=== PATIENT | male | born 1980 | race Two or more races ===

== ENCOUNTER 2025-01-02 21:39 | Emergency (ER) | payer SELFPAY ==
[2025-01-02 21:41] VITALS: BMI 33.9
[2025-01-02 22:04] VITALS: BP 149/102; PULSE 69; RESP 18; TEMP 37.1; O2SAT 97
--- NOTE | 2025-01-02 22:06 | XR_ITS ---
Examination: CT brain head without contrast. 2-D sagittal coronal reconstructions Date and time of exam: January 02, 2025, 1018 hours INDICATIONS: Headache dizziness high blood pressure today CTDI: vol (mGy): 52.2 DLP: (mGycm): 1110 Technique: Multiple CT axial sections of the brain have been obtained, 5 mm slice thickness. Contrast has not been administered. 2-D sagittal, coronal reconstructions have been obtained Low dose protocols were performed. One or more of the following dose reduction techniques were used; automated exposure control, adjustment of the mA and/or KV according to patient size, use of iterative reconstruction technique. Findings: No significant ventricular enlargement. Intra-axial or extra-axial hemorrhage density is not seen. No mass effect or midline shift Basal cisterns are not remarkable. Fourth ventricle is midline. Cranial vault intact. Impression: Negative for acute hemorrhage, mass effect or midline shift
--- NOTE | 2025-01-02 22:07 | EDNOTE_ITS ---
ED Headache RME/HPI General Chief Complaint: Headache Stated Complaint: HEADACHE Time Seen by Provider: 01/02/25 22:01 Arrival date/time: 01/02/25 21:39 44-year-old male patient was brought in by family for evaluation regarding headache. Patient has been having left-sided headache, has been ongoing for several weeks, getting worse last night severity moderate. Patient is worried because he had skull fracture with intracranial bleed 7 years ago. Denies any recent head trauma. Denies any fever denies any neck pain. Patient is ambulatory. Related Data Previous Rx's ?Medication ?Instructions ?Recorded ibuprofen 800 mg tablet 800 mg PO TID PRN pain #30 t abs 01/02/25 Allergies Allergy/AdvReac Type Severity Reaction Status Date / Time No Known Allergies Allergy Verified 01/02/25 21:40 Review of Systems Review of Systems Narrative Review of Systems: Review of system reviewed and within normal limits except mentioned in HPI ED Exam Narrative Physical exam: VITAL SIGNS: Reviewed. GENERAL APPEARANCE: Alert and interactive, follows commands, no acute distress, HEAD AND FACE: Non-traumatic. ENT: PERRL, pink conjunctivitis, eyelid no trauma, Mucous membrane moist. NECK: Supple, nontender, no nuchal rigidity. CHEST: No tenderness, no crepitus, no paradoxical movement, no retractions. LUNGS: Clear, well ventilated, symmetric, no rales, no wheezing, no ronchi, no stridor, good breath sounds bilaterally. HEART: Regular rate, regular rhythm, no murmur, no gallops. ABDOMEN: Soft, positive bowel sounds, nondistended, no guarding, nontender, no rebound, no masses, RECTAL: Deferred. GENITAL: Deferred. NEUROLOGICAL: Gross motor function intact sensory function intact, Appropriate for age. MUSCULOSKELETAL: low back nontender, full range of motion. EXTREMITIES: Nontender, full range of motion. SKIN: Color pink, dry, no rash, no lacerations, no abrasions, no contusions. LYMPHATICS: Deferred. Course Quality Measures none Orders Category Date Time Status CT head/brain wo con Stat Exams 01/02/25 22:06 Completed DiphenhydrAMINE [Benadryl] Med 01/02/25 22:52 Once 50 mg PO X1 ONE Ketorolac Inj [Toradol Inj] Med 01/02/25 22:52 Once 30 mg IM X1 ONE Metoclopramide [Reglan] Med 01/02/25 22:52 Once 10 mg PO X1 ONE Vital Signs Vital signs: Vital Signs Temperature 98.7 F 01/02/25 22:04 Pulse Rate 69 01/02/25 22:04 Respiratory Rate 18 01/02/25 22:04 Blood Pressure 149/102 H 01/02/25 22:04 Pulse Oximetry (%) 97 01/02/25 22:04 Oxygen Delivery Method Room Air 01/02/25 22:04 Headache MDM Narrative [facility] Narrative:: 44-year-old male patient was brought in by family for evaluation regarding headache. Patient has been having left-sided headache, has been ongoing for several weeks, getting worse last night severity moderate. Patient is worried because he had skull fracture with intracranial bleed 7 years ago. Denies any recent head trauma. Denies any fever denies any neck pain. Patient is ambulatory. CT scan of the head came back unremarkable. Results discussed with the patient. Patient received Toradol IM Benadryl and Reglan with significant improvement of headache. Further imaging is not that at this time patient is ambulatory, and his headache is gone. Stable for discharge home Patient data External records reviewed:: None Clinical information provided by:: patient Social determinants that could affect healthcare access:: none Patient has the following chronic illnesses:: None How is presenting disease/condition affected by chronic disease/condition?: no chronic disease Evaluation data The following diagnostics were reviewed and interpreted by me:: radiology exam(s) Lab and/or radiology exams considered but not ordered:: None Interpretation Summary: See [facility] Medications / Prescriptions Medications or Prescriptions considered but not ordered:: None Medication administrations:: Toradol Reglan Benadryl Consultations Consultation(s) initiated? (list below): No Diagnosis Differential diagnosis headache: migraine, tension headache and headache Most likely diagnosis given after review of the tests above:: Headache Admission Indicated Admission indicated?: not indicated Admission Request Was there a request for admission?: No Disposition Plan Disposition Plan: Discharge Discharge Attestation Discharge Attestation: The patient was given an opportunity to ask questions and understood the discharge instructions. Discharge instructions specifically effects, indications for sooner follow up or return to the emergency department, and the expected course of current diagnosis. Patient condition: Stable Discharge Plan Plan Patient Disposition: HOME (Self Care) Discharge Disposition comment: stable Prescriptions/Referrals Prescriptions/Med Rec: New ibuprofen 800 mg tablet 800 mg PO TID PRN (Reason: pain) Qty: 30 0RF Problem List Clinical Impression: Headache Patient/Caregiver Discharge Instructions Discharge Activity: activity as tolerated Education Materials: Self-Care for Headaches Additional Instructions: Thank you for the opportunity for serving you today. You are stable for discharged . You are advised to: Follow-up with your PCP in 1 to 2 days Return to ED for worsening of symptoms Increase oral fluids Take medication as prescribed Print Language: Wolof Stand Alone Forms: Paulina Award Info., Patient Portal Info Letter PA/BI MANAGER Supervising Physician PA/BI MANAGER Supervising Physician: MD Ferdinand
[2025-01-02] MEDS: METOCLOPRAMIDE 5 MG TABLET 10 MG PO (23:04)
[2025-01-02] MEDS: KETOROLAC INJ 30 MG/ML VIAL IM (23:04)
[2025-01-02 23:59] VITALS: RESP 16
== END 2025-01-02 23:59 | disposition home or self-care (01) ==
LOC: SERX 23:22
PROVIDERS: Emergency Provider Emergency Medicine
DX: R51.9 Headache, unspecified (principal)
CPT/HCPCS: 70450; 96372; 99283; J1885; A9270